=== PATIENT | female | born 1960 | race Caucasian/White ===

== ENCOUNTER 2017-12-14 17:07 | Emergency (ER) | payer MEDICARE ==
[2017-12-14] MEDS: IBUPROFEN 600 MG TAB PO (18:34)
== END 2017-12-14 18:36 | disposition home or self-care (01) ==
LOC: M ED 17:07
DX: L02.411 Cutaneous abscess of right axilla (principal); Z98.890 Other specified postprocedural states; E11.9 Type 2 diabetes mellitus without complications; K21.9 Gastro-esophageal reflux disease without esophagitis; F17.200 Nicotine dependence, unspecified, uncomplicated; Z79.4 Long term (current) use of insulin; Z79.899 Other long term (current) drug therapy
CPT/HCPCS: 87186

== ENCOUNTER 2017-12-25 14:56 | Emergency (ER) | payer MEDICARE ==
[2017-12-25] MEDS: ACETAMINOPHEN 325 MG TAB PO (17:15)
== END 2017-12-25 18:24 | disposition home or self-care (01) ==
LOC: M ED 14:56
DX: L02.411 Cutaneous abscess of right axilla (principal); L73.2 Hidradenitis suppurativa; R60.0 Localized edema; E11.9 Type 2 diabetes mellitus without complications; K21.9 Gastro-esophageal reflux disease without esophagitis; F17.210 Nicotine dependence, cigarettes, uncomplicated; Z79.899 Other long term (current) drug therapy; Z79.4 Long term (current) use of insulin; Z79.2 Long term (current) use of antibiotics
CPT/HCPCS: 93971

== ENCOUNTER 2018-01-08 19:08 | Emergency (ER) | payer MEDICARE ==
[2018-01-08] MEDS ORDERED: MORPHINE 4 MG/ML 1ML VIAL/SYRINGE (J2270) IV (20:15)
[2018-01-08 20:37] LABS: BASO # 0.1 10^3/uL (0.0-0.2); BASO % 0.5 % (0.0-1.0); EOS # 0.2 10^3/uL (0.0-0.50); EOS % 2.2 % (0.0-3.0); HEMATOCRIT 42.3 % (36.0-47.0); IMMATURE GRANULOCYTE % 0.3 % (0-3.0); LYMPH # 4.4 10^3/uL (1.5-4.5); LYMPH % 45.5 % (24.0-44.0); MEAN CORPUSCULAR HEMOGLOBIN 30.5 pg (27.0-33.0); MEAN CORPUSCULAR HGB CONC 35.5 g/dl (32.0-36.5); MEAN CORPUSCULAR VOLUME 86.2 fl (80.0-96.0); MONO # 0.5 10^3/uL (0.0-0.8); MONO % 4.9 % (0.0-5.0); NEUTROPHILS # 4.5 10^3/uL (1.8-7.7); NEUTROPHILS % 46.6 % (36.0-66.0); PLATELET COUNT, AUTOMATED 211 10^3/uL (150-450); RED BLOOD COUNT 4.91 10^6/uL (4.00-5.40); RED CELL DISTRIBUTION WIDTH 13.8 % (11.5-14.5); WHITE BLOOD COUNT 9.7 10^3/uL (4.0-10.0)
[2018-01-08] MEDS: NS 1,000 ML IV (20:43)
[2018-01-08] MEDS: KETOROLAC 30 MG/ML VIAL (J1885) IV (20:44)
[2018-01-08 20:47] LABS: INR 0.88
[2018-01-08 20:48] LABS: PARTIAL THROMBOPLASTIN TIME 26.3 SECONDS (25.4-37.6)
[2018-01-08 21:01] LABS: ERYTHROCYTE SEDIMENTATION RATE 46 mm/hr (0-30)
[2018-01-08 21:09] LABS: ALBUMIN 3.4 GM/DL (3.2-5.2); ALKALINE PHOSPHATASE 182 U/L (45-117); BILIRUBIN,DIRECT < 0.1 MG/DL (0.0-0.2); BILIRUBIN,TOTAL 0.4 MG/DL (0.2-1.0); BLOOD UREA NITROGEN 9 MG/DL (7-18); C REACTIVE PROTEIN QUANTITATIV 0.64 MG/DL (0.00-0.30); CALCIUM LEVEL 8.8 MG/DL (8.5-10.1); CARBON DIOXIDE LEVEL 27 MEQ/L (21-32); CHLORIDE LEVEL 97 MEQ/L (98-107); CPK CREATINE PHOSPHOKINASE 23 U/L (26-192); CREATININE FOR GFR 0.68 MG/DL (0.55-1.30); GLUCOSE, FASTING 393 MG/DL (70-100); POTASSIUM SERUM 3.9 MEQ/L (3.5-5.1); SODIUM LEVEL 131 MEQ/L (136-145); TOTAL PROTEIN 7.2 GM/DL (6.4-8.2); TROPONIN I < 0.02 NG/ML (< 0.10)
[2018-01-08 21:18] LABS: CK-MB VALUE MASS < 1.0 NG/ML (<3.6)
[2018-01-08 21:29] LABS: ALT/SGPT 25 U/L (12-78); AST/SGOT 8 U/L (7-37)
[2018-01-08 21:34] LABS: LACTIC ACID SEPSIS PROTOCOL < 0.4 MMOL/L (0.4-2.0)
[2018-01-08 21:38] LABS: ALBUMIN/GLOBULIN RATIO 0.89 (1.00-1.93); ANION GAP 7 MEQ/L (8-16)
[2018-01-08 21:42] LABS: MB/CK RELATIVE INDEX 4.34 (< OR =4)
[2018-01-08 21:57] LABS: ESTIMATED AVERAGE GLUCOSE 298 MG/DL (60-110)
[2018-01-08 22:17] LABS: KETONE, URINE AUTO RFX NEGATIVE (NEGATIVE); LEUKOCYTE ESTERASE UR AUTO RFX 3+ (NEGATIVE); MUCUS, URINE RFX SMALL (NEGATIVE); NITRITE, URINE AUTO RFX POSITIVE (NEGATIVE); RBC, URINE AUTO RFX 1 /HPF (0-3); SPECIFIC GRAVITY UR AUTO RFX 1.027 (1.002-1.035); SQUAM EPITHELIAL CELL UR AURFX 2 /HPF (0-6); WBC, URINE AUTO RFX 26 /HPF (0-3)
[2018-01-09 00:03] LABS: OSMOLALITY SERUM 304 MOSM/KG (275-295)
[2018-01-09 00:15] LABS: ACETONE/KETONE 0.82 MG/DL (<2.81); MAGNESIUM LEVEL 1.7 MG/DL (1.8-2.4)
[2018-01-09 00:15] LABS: PHOSPHORUS LEVEL 3.6 MG/DL (2.5-4.9)
[2018-01-09 00:27] LABS: VENOUS BASE EXCESS -0.9 (-2.0-2.0); VENOUS HCO3 23.6 MEQ/L (23.0-27.0); VENOUS O2 SATURATION 94.7 % (60.0-80.0); VENOUS PARTIAL PRESSURE CO2 38.6 mmHg (38.0-50.0); VENOUS PARTIAL PRESSURE O2 70.8 mmHg (30.0-50.0); VENOUS PH 7.404 UNITS (7.330-7.430); VENOUS STANDARD HCO3 23.7 MEQ/L; VENOUS TOTAL CO2 24.8 MEQ/L (24.0-28.0)
== END 2018-01-09 03:14 | disposition home or self-care (01) ==
LOC: M ED 01-09 03:14
DX: E11.65 Type 2 diabetes mellitus with hyperglycemia (principal); N39.0 Urinary tract infection, site not specified; L02.411 Cutaneous abscess of right axilla; L02.214 Cutaneous abscess of groin; R06.02 Shortness of breath; E11.40 Type 2 diabetes mellitus with diabetic neuropathy, unspecified; E11.621 Type 2 diabetes mellitus with foot ulcer; R20.0 Anesthesia of skin; R20.2 Paresthesia of skin; K21.9 Gastro-esophageal reflux disease without esophagitis; Z91.041 Radiographic dye allergy status; Z88.5 Allergy status to narcotic agent; F17.200 Nicotine dependence, unspecified, uncomplicated; Z79.899 Other long term (current) drug therapy; Z79.4 Long term (current) use of insulin
CPT/HCPCS: J1885